=== PATIENT | male | born 1935 | race Caucasian/White ===

== ENCOUNTER → 2016-11-19 | Outpatient (CLI) | payer OTHER ==
[~2016-11-19] VITALS: Ht 180.3 cm; Wt 83.9 kg
[~2016-11-19] MED LIST: HYDROCHLOROTHIA25 M2 PO; LIPITOR 20 MG T20 M1 PO; LISINOPRIL20 MG PO; LOPRESSOR50 PO; MOBIC15 MG PO
--- NOTE | ~2016-11-19 | HPC ---
[facility] [address] [address] PAIN MANAGEMENT CONSULTATION Name: ANGELICA SWEET Room #: REG [facility] [id number] Admission: 11/19/16 Attend Phys: Devan Moore DO Discharge: Date of : 34 Report #: [id number] THIS REPORT FOR: //name// CC: Shyla Moore DATE OF SERVICE: 11/19/2016 The patient is a pleasant 80-year-old gentleman seen in consultation at request of Dr. Shyla Corrales for evaluation of pain, left shoulder. The patient notes pain began acutely without antecedent trauma and overuse. It has been present 3-4 weeks, has significant pain with left shoulder abduction greater than about 90 degrees, cannot lay on the left side. Nothing in particular has given him relief. He describes continuous, throbbing, burning pain. Rates an 8 on a 0-10 visual analog scale. REVIEW OF SYSTEMS: Complete review of systems attached to chart and gone over with the patient. He is , does not smoke or drink alcohol to excess. History of hypertension, treated with lisinopril, hydrochlorothiazide and metoprolol. Dyslipidemia for which he takes Lipitor. He has had a cholecystectomy 10 years ago. He has otherwise enjoyed remarkably good health. He retired 15 years ago from [employer]. His pain impact score is fairly low, but he has significant impact in his functional ability with his left arm, he is left hand dominant. PHYSICAL EXAMINATION: Reveals a 5-foot 11-inch, 185-pound gentleman, BMI is 25.8 kilograms per meter squared. Blood pressure is 129/87, pulse 53, respirations 16. His cranial nerves 2-12 grossly intact. Pupils are equal, reactive to light and accommodation. Extraocular muscles are intact. Thyroid is enlarged. I can detect no nodules. Cervical range of motion is adequate, negative Lhermitte's. Left arm has significant limitation to abduction at about 90 degrees. Left deltoid and triceps strength is diminished. He incidentally has a positive Tinel's over the left ulnar, negative on the right. Hand grasp is symmetric. Forearm strength is preserved. He has pain with active resistance to left shoulder rotation. He has pain with both passive and active range of motion in that left shoulder. Heart is regular and rhythmical without murmur. Lungs are clear to auscultation. Abdomen is unremarkable. Skin integument is intact. Lower extremity strength is preserved and gait is tandem. DIAGNOSTIC STUDIES: There are no recent diagnostic studies available for evaluation at this time. ASSESSMENT: Left shoulder pain, degenerative joint disease, possible rotator cuff tear in [place] [address] PAIN MANAGEMENT CONSULTATION Name: MICKIANGELICA DESIREE Room #: REG SAIMA [place]#: [id number] Admission: 11/19/16 Attend Phys: Devan Moore DO Discharge: Date of : 34 Report #: [id number] RECOMMENDATION: I had discussion with the patient today about therapeutic options. I have elected to start mobic 15 mg 1 a day, left shoulder arthrogram and steroid injection today, follow up in 3-4 weeks for reevaluation. Referred to physical therapy for range of motion and rotator cuff strengthening. If symptoms do not improve in 4 weeks, will refer to Orthopedics, will likely need an MRI arthrogram for rotator cuff tear. Incidentally, rotator cuff tear was relatively low in my differential diagnosis at this point given lack of antecedent trauma. ASSESSMENT: Degenerative joint disease, left shoulder and left shoulder pain. PROCEDURE: Left shoulder injection under fluoroscopy. PROCEDURE NOTE: After written informed consent was obtained, the patient was taken to the fluoroscopy suite and placed in supine position. Skin overlying the shoulder was cleansed with ChloraPrep. Skin wheal with Xylocaine was raised. A 22-gauge stylet needle was placed to contact the proximal aspect of the humerus. Negative aspiration was accomplished, 1 mL of Omnipaque was injected, which showed spread within the glenohumeral joint. This was followed with 40 mg triamcinolone plus 2 mL of 0.5% preservative-free bupivacaine. Needle was removed, area was cleansed, Band-Aids applied. The patient monitored for an appropriate period of time, discharged in good and stable condition, told to watch the area for infection, swelling, systemic fever, chills; if any of these signs of infection occur, the patient is to report to the ER. Otherwise, we will see him back in 3-4 weeks for reevaluation. <ELECTRONICALLY SIGNED> By: Devan Moore DO 11/20/16 0704 1234 1511 Devan Moore DO /nt
[2016-11-19 09:04] VITALS: BP 139/87
== END | disposition home or self-care (01) ==
LOC: PAIN 06:43
DX: M19.012 Primary osteoarthritis, left shoulder (principal); I10 Essential (primary) hypertension; E78.5 Hyperlipidemia, unspecified; Z90.49 Acquired absence of other specified parts of digestive tract

== ENCOUNTER → 2016-12-18 | Outpatient (CLI) | payer OTHER ==
[~2016-12-18] VITALS: Ht 180.3 cm; Wt 85.1 kg
--- NOTE | ~2016-12-18 | HPC ---
[facility] [address] [address] PAIN MANAGEMENT CONSULTATION Name: ANGELICA SWEET Room #: REG [facility] Latricia#: [id number] Admission: 12/18/16 Attend Phys: Devan Moore DO Discharge: Date of : 34 Report #: [id number] THIS REPORT FOR: //name// CC: Shyla Moore The patient is a very pleasant 81-year-old gentleman initially seen in consultation 11/19/2016, diagnosed with left shoulder pain and DJD who was given anterior approach shoulder injection under fluoroscopy, started on meloxicam. Returns to pain clinic today noting 25% relief following the injection. Still has intermittent good days and bad days. Last night the range of motion was significantly limited. This morning pain is a little better, rates it 3/10. The pain is exacerbated with abduction. PHYSICAL EXAMINATION: Shows 81-year-old gentleman, BMI is 26.2 kilograms per meter squared. Vital signs stable as noted in the EMR. Cervical range of motion is full. Negative limit. Passive rotation of the shoulder exhibits only minor pain. Does have pain with active abduction. Resistance to deltoid contraction (abduction) and triceps strength does exacerbate pain within the shoulder, though peripheral strength is actually fairly good. No discrete trigger points noted around the shoulder joint proper. ASSESSMENT: Symptomatic degenerative joint disease, left shoulder. RECOMMENDATIONS: After discussion with the patient today, we elected to proceed with a posterior approach, left shoulder injection today. Continue meloxicam. If this does not afford adequate relief, we will refer to Orthopedics for further evaluation and treatment. ASSESSMENT: Symptomatic left shoulder pain; degenerative joint disease, left shoulder. PROCEDURE: After written informed consent was obtained, the patient was taken to the fluoroscopy suite and placed in prone position. Skin overlying the posterior approach to the shoulder was cleansed with ChloraPrep. Sterile drape was applied. Skin wheals with Xylocaine was raised. A 20-gauge Angiocath was placed approximately 1 cm inferior to the posterior lateral borderline of the acromion. Catheter was directed in a superior medial approach contacting the superior aspect of the acromion. [place] removed. Angiocath was kept in place. A 1 mL of Omnipaque was injected, which showed spread within the joints. This followed with 40 mg triamcinolone plus 2 mL of 0.5% preservative-free bupivacaine. Needle was removed. The area was cleansed, Band-Aids applied. The patient told to watch area for infection including systemic fever, chills, swelling at local site or increased pain. Range of motion was encouraged. Continue meloxicam p.o. Follow up in 2 weeks for reevaluation. If symptoms continue, we will refer to Orthopedics. If doing well, the patient simply follow up on as needed basis and cancel the scheduled appointment. [address] [address] PAIN MANAGEMENT CONSULTATION Name: MICKIANGELICA Room #: REG CL Latricia#: [id number] Admission: 12/18/16 Attend Phys: Devan Moore DO Discharge: Date of : 34 Report #: [id number] Thank you for allowing me to participate in the patient's care. Fluoroscopy time was under 10 seconds. <ELECTRONICALLY SIGNED> By: Devan Moore DO 12/21/16 1538 0831 1415 Devan Moore DO /nt
[2016-12-18 07:58] VITALS: BP 143/88
== END | disposition home or self-care (01) ==
LOC: PAIN 06:20
DX: M19.012 Primary osteoarthritis, left shoulder (principal); M25.512 Pain in left shoulder

== ENCOUNTER 2017-07-28 05:18 | Inpatient (IN) | payer OTHER ==
[2017-07-12 08:30] LABS: HEMATOCRIT 41.8 % (42.0-52.0); HEMOGLOBIN 14.5 gm/dL (14.0-18.0); MCH 33.3 pg (26.0-34.0); MCHC 34.6 g/dL (28.0-37.0); MCV 96.1 fL (80.0-100.0); RBC 4.35 mil/uL (4.50-6.00); WBC 8.7 thou/uL (4.0-11.0)
[2017-07-12 08:34] LABS: URINE BILIRUBIN NEGATIVE (Negative); URINE BLOOD NEGATIVE (Negative); URINE COLOR YELLOW; URINE GLUCOSE-RANDOM* NEGATIVE (Negative); URINE KETONES NEGATIVE (Negative); URINE LEUKOCYTES-REFLEX NEGATIVE (Negative); URINE PROTEIN (DIPSTICK) 1+ (Negative); URINE UROBILINOGEN 0.2 E.U./dl (0.2-1.0)
[2017-07-12 08:38] LABS: CALCIUM 9.7 mg/dL (8.5-10.1); CREATININE 1.3 mg/dL (0.7-1.3); POTASSIUM 4.3 mmol/L (3.5-5.1)
[2017-07-12 08:44] LABS: INR 1.1; PROTIME 10.8 Seconds (9.3-11.4)
[2017-07-12 09:01] LABS: SQUAMOUS None Seen /LPF (0-3)
[2017-07-12 09:02] LABS: CRYSTALS None Seen /LPF (None Seen); FINE GRANULAR CASTS 0-3 Few /LPF (None Seen); HYALINE CASTS 4-10 Moderate /LPF (None Seen); URINE RBC None Seen /HPF (0-2); URINE WBC-REFLEX 0-5 Rare /HPF (0-5)
[2017-07-28] VITALS (11 sets, daily range): BP systolic 77–138; BP diastolic 50–80
[~2017-07-28] VITALS: Ht 180.3 cm; Wt 81.1 kg
--- NOTE | ~2017-07-28 | EKG ---
[address] [address] ELECTROCARDIOGRAM REPORT Name: ANGELICA SWEET Room #: PRE IN Latricia#: [id number] Admission: Attend Phys: Edi Hernandez Discharge: Date of : 34 Report #: [id number] THIS REPORT FOR: //name// [facility] Test Date: 2017-07-12 Test Time: 08:27:05 Pat Name: ANGELICA SWEET Department: Room: Gender: M Front Office Coordinator: kermit : 1935 Requested By: Edi Caal Order Number: [id number] MD: Lucian Gaitan Measurements Intervals [place] Rate: 59 P: 11 NE: 197 QRS: -22 QRSD: 118 T: 28 QT: 398 QTc: 395 Interpretive Statements Sinus rhythm Nonspecific intraventricular conduction delay Compared to ECG 04/03/2001 06:39:51 Intraventricular conduction delay now present Sinus bradycardia no longer present Electronically Signed On 07-12-2017 21:00:00 [employer] EDIT[employer] by Lucian Gaitan [email or web address] <ELECTRONICALLY SIGNED> By: Lucian Gaitan MD 07/12/172099 6 6 Lucian Gaitan MD /[place]
--- NOTE | ~2017-07-28 | O ---
[facility] [place] [address] OPERATIVE REPORT Name: ANGELICA SWEET Room #: 150-2 ADM IN M.R.#: [id number] Admission: 07/28/17 Attend Phys: Edi Hernandez Discharge: Date of : 34 Report #: [id number] THIS REPORT FOR: //name// CC: Edi Ceeelle Savanna DATE OF SERVICE: 07/28/2017 PREOPERATIVE DIAGNOSIS: Left shoulder rotator cuff tear arthropathy with long head of biceps tendon tear. POSTOPERATIVE DIAGNOSIS: Left shoulder rotator cuff tear arthropathy with long head of biceps tendon tear. PROCEDURE PERFORMED: Left shoulder reverse total shoulder arthroplasty. SURGEON: Edi Caal M.D. CUSHION MAT MAKER: Elvira Milan PA-C. ANESTHESIA: General with preoperative indwelling catheter interscalene block. FLUIDS: 500 mL crystalloid. ESTIMATED BLOOD LOSS: Approximately 50 mL. IMPLANTS UTILIZED: DePuy Delta Xtend ISBELL coated size 12 stem with size 1 epiphysis. A 42+6 humeral polyethylene cup with a standard metaglene and a 42 mm standard glenosphere. DESCRIPTION OF PROCEDURE: After proper identification of the patient and operative site in preoperative holding area, the operative site was signed by myself. Prophylactic antibiotics given. The patient discussed interscalene block with indwelling catheter with Anesthesia and elected to proceed with this. This was done under ultrasound guidance after discussing the risks, benefits, alternatives and potential complications by Anesthesia. After a satisfactory block, the patient was brought back to the operative suite. After induction of satisfactory general endotracheal anesthesia, the patient was carefully positioned in the beach chair position with head of bed elevated approximately 40 degrees. Left shoulder was sterilely prepped and draped in usual manner. A GuideSpark limb positioning system was utilized throughout the entire procedure. Final skin draping was with Ioban. Anterior deltopectoral approach was planned. Skin was incised sharply. Full thickness skin flaps were developed. Deltopectoral interval was identified and a cephalic vein was present. Subdeltoid adhesions were carefully released and a Humera deltoid retractor was placed. Small portion of the inferior subscapularis was still [address] [address] OPERATIVE REPORT Name: ANGELICA SWEET Room #: 150-2 ADM IN M.R.#: [id number] Admission: 07/28/17 Attend Phys: Edi Hernandez Discharge: Date of : 34 Report #: [id number] present, this was released off the anterior humeral neck. Circumflex vessels were identified, ligated and cauterized. Long head of the biceps tendon had been retracted and torn more distally and had tenodesed itself to the undersurface of the pec. At this point, the humeral head was delivered. Significant wear on the superior aspect of the joint surface of both the humerus and the glenoid was noted. Oscillating saw was used to flatten the most superior aspect of the humeral head, where reamers were then utilized up to a size 12, canal reamer, which matched the preoperative templating. Cutting guide was positioned, secured with half pins and humeral head cut in approximately 20 degrees retroversion was created. The patient otherwise had good bone stock. Peripheral osteophytes were carefully removed. Protection plate was then applied to this and attention was divided to the glenoid exposure. Anterior capsule was released off the remaining inferior fibers of the subscapularis. The labrum was excised circumferentially and the inferior labrum was carefully released off the glenoid as well as a small portion of the triceps insertion. The axillary nerve was identified and protected throughout the entire procedure. The guide for the metaglene guide pin was positioned along the more inferior aspect of the glenoid. This guidepin was inserted. It had good purchase into the glenoid vault. This area was then reamed and then the Victoriano reamer was utilized for the superior aspect of the joint. Any remaining peripheral soft tissue osteophytes were carefully removed. Step drill was utilized. This drill hole was contained and the guide pin was removed. A standard metaglene was impacted into position, it was secured with 2 locking screws and 2 nonlocking screws, all of which had excellent purchase. These were tightened sequentially and then the locking screws were tightened. Humeral epiphysis was prepared with an acetabular reamer. A standard glenosphere was then placed in this and reduced into the glenoid. Guidewire was inserted. The locking screw was rotated counterclockwise until a click was noted and the glenosphere appeared to be fully seated. It was then tightened approximately 16 times, impacted, tightened, impacted, tightened, impacted and then appeared to be fully seated with final tightening. This area was then thoroughly irrigated with normal saline. A size 12 stem with +1 epiphysis was assembled on the back table. Drill holes were placed in the anterior aspect of the glenoid, two #2 FiberWires were placed. Stem was impacted into position after the humerus had been thoroughly irrigated with normal saline. It had excellent purchase and stability. A +3 and +6 polyethylene trials were utilized. The +6 provided the best overall soft tissue tension and fit. A +6 polyethylene was then impacted into position. Shoulder was reduced. It was stable throughout a full arc of motion. There was no propensity for dislocation. Subscapularis fibers that were remaining were repaired with the #2 FiberWires in a modified Chaparro-Jose technique. Joint was again thoroughly irrigated with normal saline. One gram of vancomycin powder was utilized, half of this in the deep tissues, half of it in more subcutaneous. Deltopectoral interval was closed with 0 Vicryl, 2-0 Vicryl for subcutaneous tissues, followed by a running 3-0 Monocryl stitch. Dermabond was applied. Sterile dressing was applied as well as a sling and [facility] [address] [place] [address] OPERATIVE REPORT Name: ANGELICA SWEET Room #: 150-2 ADM IN [facility].#: [id number] Admission: 07/28/17 Attend Phys: Edi Hernandez Discharge: Date of : 34 Report #: [id number] abduction pillow. The patient was still in the operative suite at the time of dictation. By: 0951 1021 Edi Caal MD /nt
[~2017-07-28 05:18] MED LIST changes: +ASPIR 8181 M1 PO; +CENTRUM SILVER1 EAC4 PO
[2017-07-29 03:11] VITALS: BP 91/56
[2017-07-29 05:55] LABS: HEMATOCRIT 32.4 % (42.0-52.0); HEMOGLOBIN 11.1 gm/dL (14.0-18.0)
[2017-07-29 07:10] VITALS: BP 108/64
[2017-07-29 08:00] VITALS: BP 108/64
[2017-07-29 08:33] LABS: CREATININE 1.2 mg/dL (0.7-1.3)
[2017-07-29] MEDS ORDERED: COLACE100 MG PO (14:44)
[2017-07-29] MEDS ORDERED: ZOFRAN ODT4 MG PO (14:44)
[2017-07-29 15:27] VITALS: BP 108/64
== END 2017-07-29 16:15 | disposition home or self-care (01) | DRG 483 ==
LOC: TBA 05:18 → 4N 05:18 → PRE 05:28 → 4N 11:05 → PRE 11:22 → ENTRNSPT 07-29 16:12 → 4N 07-29 16:15
PROVIDERS: Orthopaedic Surgery Sports Medicine; Physician Assistant Surgical
PROC: 0RRK00Z Replacement of Left Shoulder Joint with Reverse Ball and Socket Synthetic Substitute, Open Approach (ICD-10-PCS; principal; 2017-07-28)
DX: M75.102 Unspecified rotator cuff tear or rupture of left shoulder, not specified as traumatic (principal); S46.112A Strain of muscle, fascia and tendon of long head of biceps, left arm, initial encounter; E78.5 Hyperlipidemia, unspecified; I10 Essential (primary) hypertension; M19.012 Primary osteoarthritis, left shoulder; M66.822 Spontaneous rupture of other tendons, left upper arm; X58.XXXA Exposure to other specified factors, initial encounter; Y93.89 Activity, other specified; Y92.89 Other specified places as the place of occurrence of the external cause; Y99.8 Other external cause status; Z88.8 Allergy status to other drugs, medicaments and biological substances; Z28.21 Immunization not carried out because of patient refusal
CPT/HCPCS: 10790; 50010; 50101; 50172; 50386; 50417; 50697; 50733; 50935; 51771; 52138; 53000; 53078; 53371; 54118; 56524; 56525; 56526; 56530; 57095; 62110; 62900; 64041; 64043; 70005

== ENCOUNTER → 2019-06-15 | Outpatient (CLI) | payer OTHER ==
[~2019-06-15] MED LIST changes: +COLACE100 MG PO; +MOBIC7.5 MG PO; +ZOFRAN ODT4 MG PO
--- NOTE | 2019-06-15 08:46 | 2DMMODE ---
[facility] [address] [place] [address] 2 D/M-MODE ECHOCARDIOGRAM Name: ANGELICA SWEET Room #: REG CL [facility]#: [id number] Admission: 06/15/19 Attend Phys: Yaya Jorge MD Discharge: Date of : 34 Report #: [id number] THIS REPORT FOR: //name// APPROVED REPORT Study performed: 06/15/2019 07:51:54 EXAM: Comprehensive 2D, Doppler, and color-flow Echocardiogram Patient Location: Echo lab Status: routine BSA: 2.02 HR: 85 bpm BP: 120/72 mmHg Other Information Study Quality: Adequate Indications Hypertension/HDD Elevated calcium score 2D Dimensions RVDd: 39.90 mm IVSd: 11.89 (7-11mm) LVOT Diam: 25.86 (18-24mm) LVDd: 49.40 mm PWd: 10.44 (7-11mm) Ascending Ao: 32.50 (22-36mm) LVDs: 36.07 (25-40mm) Aortic Root: 32.39 mm IVC: 16.00 mm Volumes Left Atrial Volume (Systole) Single Plane 4CH: 50.46 mL Single Plane 2CH: 81.92 mL LA ESV Index: 36.00 mL/m2 Aortic Valve AoV Peak Ihsan.: 1.03 m/s AO Peak Gr.: 4.25 mmHg LVOT Max P.12 mmHg LVOT Max V: 1.01 m/s KHANG Vmax: 5.16 cm2 Mitral Valve E/A Ratio: 0.7 MV Decel. Time: 298.40 ms MV E Max Ihsan.: 0.56 m/s [facility] [address] [address] 2 D/M-MODE ECHOCARDIOGRAM Name: ANGELICA SWEET Room #: REG CL [facility]#: [id number] Admission: 06/15/19 Attend Phys: Yaya Jorge MD Discharge: Date of : 34 Report #: [id number] MV A Ihsan.: 0.79 m/s MV PHT: 86.54 ms IVRT: 145.33 ms Pulmonary Valve PV Peak Ihsan.: 0.87 m/s PV Peak Gr.: 3.04 mmHg Pulmonary Vein P Vein S: 0.97 m/s P Vein A: 0.26 m/s P Vein D: 0.39 m/s P Vein A Dur.: 121.1 msec P Vein S/D Ratio: 2.49 Tricuspid Valve TR Peak Ihsan.: 2.56 m/s RAP Estimate: 5.00 mmHg TR Peak Gr.: 26.29 mmHg PA Pressure: 31.00 mmHg Left Ventricle The left ventricle is normal size. There is normal left ventricular wall thickness. The left ventricular systolic function is normal. The left ventricular ejection fraction is within the normal range. LVEF is 60-65%. Mild diastolic dysfunction is present (impaired relaxation pattern). Right Ventricle Right ventricle is at the upper limits of normal. The right ventricular systolic function is normal. Atria Left atrium is mildly dilated. Right atrium is at the upper limits of normal. Aortic Valve Aortic valve is mildly calcified. Trace aortic regurgitation. There is no aortic valvular stenosis. Mitral Valve The mitral valve is normal in structure. Mild to moderate mitral regurgitation. No evidence of mitral valve stenosis. Tricuspid Valve The tricuspid valve is normal in structure. Mild tricuspid regurgitation. PAP is estimated at 31 mmHg. Pulmonic Valve The pulmonary valve is normal in structure. Trace to mild pulmonic [facility] [address] [place] [address] 2 D/M-MODE ECHOCARDIOGRAM Name: ANGELICA SWEET Room #: REG CL [facility]#: [id number] Admission: 06/15/19 Attend Phys: Yaya Jorge MD Discharge: Date of : 34 Report #: [id number] regurgitation. Great Vessels The aortic root is normal in size. IVC is normal in size and collapses >50% with inspiration. Pericardium There is no pericardial effusion. <Conclusion> The left ventricle is normal size. There is normal left ventricular wall thickness. The left ventricular systolic function is normal. Mild diastolic dysfunction is present (impaired relaxation pattern). Right ventricle is at the upper limits of normal. Left atrium is mildly dilated. Aortic valve is mildly calcified. Mild to moderate mitral regurgitation. Mild tricuspid regurgitation. PAP is estimated at 31 mmHg. <ELECTRONICALLY SIGNED> By: Yaya Jorge MD 06/15/19845 5 5 Yaya Jorge MD /INF
== END ==
LOC: CV 06:55
DX: I08.8 Other rheumatic multiple valve diseases (principal); E78.5 Hyperlipidemia, unspecified; I10 Essential (primary) hypertension; Z88.8 Allergy status to other drugs, medicaments and biological substances

== ENCOUNTER 2019-10-05 13:44 | Emergency (ER) | payer OTHER ==
[~2019-10-05] VITALS: Ht 180.3 cm; Wt 81.7 kg
[2019-10-05 14:06] LABS: URINE BILIRUBIN NEGATIVE (Negative); URINE BLOOD NEGATIVE (Negative); URINE CLARITY CLEAR; URINE COLOR YELLOW; URINE GLUCOSE-RANDOM* NEGATIVE (Negative); URINE KETONES NEGATIVE (Negative); URINE LEUKOCYTES-REFLEX NEGATIVE (Negative); URINE NITRITE-REFLEX NEGATIVE (Negative); URINE PROTEIN (DIPSTICK) NEGATIVE (Negative); URINE UROBILINOGEN 0.2 E.U./dl (0.2-1.0)
[2019-10-05 15:48] LABS: ABSOLUTE NEUTROPHILS 3.8 thou/uL (1.4-8.2); BASOPHILS 0.7 % (0.0-2.0); EOSINOPHILS 2.5 % (0.0-3.0); HEMATOCRIT 41.2 % (42.0-52.0); HEMOGLOBIN 14.1 gm/dL (14.0-18.0); LYMPHOCYTES 37.4 % (24.0-44.0); MCH 33.7 pg (26.0-34.0); MCHC 34.1 g/dL (28.0-37.0); MCV 98.8 fL (80.0-100.0); MONOCYTES 4.9 % (1.0-8.0); PLATELET COUNT 210 thou/uL (150-400); POLYS 54.5 % (36.0-66.0); RBC 4.17 mil/uL (4.50-6.00); RDW 12.8 % (10.5-14.5); WBC 6.9 thou/uL (4.0-11.0)
[2019-10-05 15:54] LABS: CALCIUM 9.4 mg/dL (8.5-10.1); CREATININE 1.1 mg/dL (0.7-1.3); POTASSIUM 3.7 mmol/L (3.5-5.1)
[2019-10-05 16:01] LABS: ALBUMIN 4.5 g/dL (3.4-5.0); TOTAL BILIRUBIN 0.6 mg/dL (<0.1-1.0); TOTAL PROTEIN 7.8 g/dL (6.4-8.2)
[2019-10-05] MEDS ORDERED: FLAGYL500 M1 PO (20:57)
[2019-10-05] MEDS ORDERED: CIPRO500 M1 PO (20:57)
[2019-10-05 21:15] VITALS: BP 152/82
== END 2019-10-05 23:53 | disposition home or self-care (01) ==
LOC: ER 13:44
PROVIDERS: Emergency Medicine
DX: K63.89 Other specified diseases of intestine (principal); M89.9 Disorder of bone, unspecified; I10 Essential (primary) hypertension; E78.5 Hyperlipidemia, unspecified; Z90.49 Acquired absence of other specified parts of digestive tract; Z87.442 Personal history of urinary calculi; Z88.6 Allergy status to analgesic agent

== ENCOUNTER → 2019-11-02 | Outpatient (CLI) | payer OTHER ==
[~2019-11-02] VITALS: Ht 180.3 cm; Wt 81.6 kg
[~2019-11-02] MED LIST changes: +CIPRO500 M1 PO; +CO-ENZYME Q-1010 MG PO; +FLAGYL500 M1 PO
--- NOTE | 2019-11-02 10:45 | P ---
[facility] [address] [address] PROCEDURE REPORT Name: ANGELICA SWEET Room #: REG SAIMA Ji.#: [id number] Admission: 11/02/19 Attend Phys: Beltran Lynn MD Discharge: Date of : 34 Report #: [id number] THIS REPORT FOR: cc: Shyla Corrales MD,Beltran Escobedo MD, MD ~ CC: Beltran Thomas MD OUTPATIENT COLONOSCOPY REPORT INDICATIONS: Abdominal pain with recent CT revealing thickening of the splenic flexure. He does have a history of colon polyps. Last colonoscopy as far as I can tell was in 2015 and was non-diagnostic. PREOPERATIVE DIAGNOSES: Abnormal CT of the colon and abdominal pain. POSTOPERATIVE DIAGNOSES: 1. Moderately severe diverticulosis coli, primarily sigmoid colon. 2. Small internal hemorrhoids. MEDICATIONS: Deep sedation with propofol per anesthesia. SPECIMEN: None. ESTIMATED BLOOD LOSS: None. PROCEDURE: Colonoscopy to cecum and terminal ileum. FINDINGS: Prior to propofol sedation, procedure of colonoscopy discussed with the patient as well as potential risks and its complications. He indicates he understands and desires to proceed. DESCRIPTION OF PROCEDURE: With the patient in left lateral decubitus position, digital examination was completed, which revealed no abnormalities. I did not feel any prostatic nodules. Subsequently, the Olympus video colonoscope was introduced into the rectum, advanced under direct vision to the cecum. This was done with minimal difficulty. The cecum was identified by the ileocecal valve and the appendiceal orifice. I was able to visualize the distal segment of terminal ileum, which was inspected and noted to be unremarkable. At that point, the scope was slowly withdrawn and careful circumferential views were obtained. Upon slow withdrawal of the scope, there were some limitations of the prep, in particular, there was residual material from time release medications. With irrigation and suctioning much of this was removed, although every last bit of it could not be removed. However, with irrigation and suctioning, overall [facility] [address] [place] [address] PROCEDURE REPORT Name: MICKIANGELICA DESIREE Room #: REG [facility].#: [id number] Admission: 11/02/19 Attend Phys: Beltran Lynn MD Discharge: Date of : 34 Report #: [id number] reasonably good prep was obtained of the colon. As we withdrew the scope, the mucosa was within normal limits, normal vascular pattern, normal light reflex. No neoplastic inflammatory changes were seen. No colonic thickening was seen. In particular, the region of the splenic flexure was unremarkable without mass lesions or thickening. The scope was withdrawn through the remainder of the colon, which was unremarkable until the sigmoid colon was reached, at which point he was noted to have moderately severe diverticular disease without endoscopic evidence of diverticulitis. The scope was withdrawn in the rectum. Upon retroflexion, no abnormalities were seen, other than small hemorrhoids. The scope was withdrawn. The patient tolerated the procedure well. CONDITION OF THE PATIENT UPON DISCHARGE: Following procedure, the patient was drowsy, arousable and conversant and will be discharged home when fully ambulatory. INSTRUCTIONS TO THE PATIENT AND FAMILY AT THE TIME OF DISCHARGE: No thickening or neoplastic changes were seen. With regards to the abnormal CT, the colonoscopy is negative and does not confirm thickening of the colon. I understand he does have lytic bone lesions and will return to Dr. Thomas for further evaluation of neoplastic process. The patient also reports the abdominal pain, which resulted in the ER visit on subsequent CAT scan has resolved. <ELECTRONICALLY SIGNED> By: Beltran Lynn MD 11/02/19 1045 0906 0941 Beltran Lynn MD /nt
== END | disposition home or self-care (01) ==
LOC: GI 07:10
DX: R10.9 Unspecified abdominal pain (principal); K57.30 Diverticulosis of large intestine without perforation or abscess without bleeding; K64.8 Other hemorrhoids; I10 Essential (primary) hypertension; E78.5 Hyperlipidemia, unspecified; Z86.010 Personal history of colon polyps; Z98.890 Other specified postprocedural states; Z79.899 Other long term (current) drug therapy; Z87.442 Personal history of urinary calculi; Z85.828 Personal history of other malignant neoplasm of skin; Z90.49 Acquired absence of other specified parts of digestive tract; Z98.42 Cataract extraction status, left eye; Z88.8 Allergy status to other drugs, medicaments and biological substances; Z79.82 Long term (current) use of aspirin
CPT/HCPCS: 62110; 62900

== ENCOUNTER → 2019-11-06 | Outpatient (CLI) | payer OTHER | LOC: NUC 08:25 | DX: C18.9 Malignant neoplasm of colon, unspecified (principal) ==

== ENCOUNTER → 2020-02-08 | Outpatient (CLI) | payer OTHER ==
--- NOTE | 2020-02-20 16:07 | PATH ---
[facility] [address] [place] [address] PATHOLOGY RPT PROCEDURE Name: JONG SWEET Room #: [facility] Margy.#: [id number] Admission: 02/08/20 Date of : 33 Discharge: Report #: [id number] Path Case #: [id number] [facility] Accession Number: [id number] . 01 Material submitted: . neck - RIGHT PERIPARTOID MASS. Modifiers: right . 01 Clinical history: . Right periparotid mass . 02 Diagnosis: Right periparotid mass, needle core biopsy: - MOST COMPATIBLE WITH AN EPITHELIOID NEOPLASM. - One core entirely comprised of lymphoid tissue. (IUV:tereso; 02/20/2020) QMS 02/20/2020 1548 Local . 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 Multiple properly controlled immunohistochemical stains are performed on block A1. Block A2 is entirely comprised of lymphoid tissue and a tiny focus of the neoplasm associated with fibrous tissue (no lymphoid tissue present in close association with the neoplasm). The tumor shows strong membranous reactivity with CELINA, and few cells show membranous reactivity with AE1/AE3. The tumor is nonreactive to p63, CD117, CD45, as well as p16. The nonreactive immunohistochemical stains argue against a mucoepidermoid carcinoma, a possible lymphoma, as well as a basaloid squamous cell carcinoma. The differential diagnosis includes a nasopharyngeal carcinoma, lymphoepithelial carcinoma, as well as adenoid cystic carcinoma,pleomorphic adenoma, epithelial-myoepithelial neoplasm amongst others. Please note sample may not be entirely advertising sales representative; correlate clinically and follow-up as indicated. A complete excision is suggested for definitive classification of this neoplasm. . Co-review: Dr. Zaina Camacho . Findings of this case are telephoned to Ms. Candy Schulte, float nurse for Dr. Shyla Tinoco, at approximately 12:25 p.m. on 02/20/2020. (IUV:tereso; 02/20/2020) . 02 Electronically signed: . Malena Lott MD, Pathologist NPI- [id number] . 01 Gross description: . The specimen is received in formalin, labeled "Jong Sweet, right periparotid mass". Received are two needle cores of [place] [address] PATHOLOGY RPT PROCEDURE Name: JONG SWEET Room #: REG CL Latricia#: [id number] Admission: 02/08/20 Date of : 33 Discharge: Report #: [id number] Path Case #: [id number] ranging in length from 0.9 to 1.1 cm in length by 0.1 cm in diameter. The specimen is submitted entirely in cassette A1 and A2. (CAA; 02/15/2020) QAC/QAC 02/15/2020 1536 Local . 02 Pathologist provided ICD-10: C07 . 02 CPT . 683725, L90666, [id number] Specimen Comment: A courtesy copy of this report has been sent to [phone], [phone] Specimen Comment: [phone] Specimen Comment: Report sent to / DR TINOCO Performed at: [address], [place] [id number] MD Raul Mi MD Phone: [phone] Performed at: [address] [id number] MD Malena Lott MD Phone: [phone]
== END ==
LOC: CAT 02-02 10:26
PROVIDERS: ATTEND Internal Medicine Hematology & Oncology
DX: D11.0 Benign neoplasm of parotid gland (principal); R22.1 Localized swelling, mass and lump, neck; R13.12 Dysphagia, oropharyngeal phase

== ENCOUNTER → 2020-06-13 | Outpatient (CLI) | payer OTHER | LOC: SJCVC 13:01 | PROVIDERS: ATTEND Internal Medicine Cardiovascular Disease | DX: R94.31 Abnormal electrocardiogram [ECG] [EKG] (principal); R93.1 Abnormal findings on diagnostic imaging of heart and coronary circulation; I10 Essential (primary) hypertension; E78.00 Pure hypercholesterolemia, unspecified; R60.9 Edema, unspecified; I34.0 Nonrheumatic mitral (valve) insufficiency ==

== ENCOUNTER → 2021-06-16 | Outpatient (CLI) | payer OTHER | LOC: SJCVCIMAG 09:44 | PROVIDERS: ATTEND Internal Medicine Cardiovascular Disease | DX: I08.8 Other rheumatic multiple valve diseases (principal); I10 Essential (primary) hypertension; E78.00 Pure hypercholesterolemia, unspecified; I25.10 Atherosclerotic heart disease of native coronary artery without angina pectoris; K21.9 Gastro-esophageal reflux disease without esophagitis; R93.1 Abnormal findings on diagnostic imaging of heart and coronary circulation; R60.9 Edema, unspecified; Z88.6 Allergy status to analgesic agent; E78.5 Hyperlipidemia, unspecified; Z79.82 Long term (current) use of aspirin; Z79.899 Other long term (current) drug therapy ==